=== PATIENT | male | born 1955 | race Asian ===

== ENCOUNTER 2022-01-03 12:22 | Day surgery (SDC) | payer MEDICARE, OTHER ==
[~2022-01-03] VITALS: Ht 170.2 cm; Wt 132.0 kg
[~2022-01-03 12:22] MED LIST: ASPI-1450 PO; ATEN-73 PO; BACI28OI29 TP; LIDOCAINE/PF 1% 5 ML VIAL IM ONE; METF-1211 PO; OMEP20 PO; PROPOFOL 1% 20 ML VIAL IVP ONE; SODIUM CHLORIDE 0.9% 1,000 ML IV ONE; SODIUM CHLORIDE 0.9% 1,000 ML ONE
[2022-01-03 12:43] LABS: COVID AG,FIA SOURCE NASAL SWAB
[2022-01-03] MEDS ORDERED: ISOS30TA92 PO (12:56)
[2022-01-03] MEDS ORDERED: SACU1TAB PO (12:56)
[2022-01-03] MEDS ORDERED: ROSU10TA72 PO (12:56)
[2022-01-03 15:56] LABS: GLUCOMETER DEV NAME(LOC) SDS.; GLUCOSE,POINT OF CARE 98 MG/DL (70-110)
== END 2022-01-03 15:50 | disposition home or self-care (01) ==
LOC: SURGERY 12:22
PROVIDERS: ATTEND Internal Medicine Gastroenterology
DX: K94.23 Gastrostomy malfunction (principal); Z79.82 Long term (current) use of aspirin; Z79.899 Other long term (current) drug therapy; I10 Essential (primary) hypertension; E78.5 Hyperlipidemia, unspecified; E11.9 Type 2 diabetes mellitus without complications; E78.00 Pure hypercholesterolemia, unspecified; Z98.890 Other specified postprocedural states
CPT/HCPCS: 43246; 82962; 87426; C9803; J2001; J2704; J7030

== ENCOUNTER 2023-05-19 08:26 | Day surgery (SDC) | payer MEDICARE, OTHER ==
[~2023-05-19] VITALS: Ht 170.2 cm; Wt 62.7 kg
[~2023-05-19 08:26] MED LIST changes: -ASPI-1450 PO; -ATEN-73 PO; -BACI28OI29 TP; +ISOS30TA92 PO; -LIDOCAINE/PF 1% 5 ML VIAL IM ONE; -METF-1211 PO; -OMEP20 PO; -PROPOFOL 1% 20 ML VIAL IVP ONE; +ROSU10TA72 PO; +SACU1TAB PO; -SODIUM CHLORIDE 0.9% 1,000 ML IV ONE
[2023-05-19] MEDS ORDERED: PROPOFOL 1% 20 ML VIAL IVP ONE (08:27)
[2023-05-19] MEDS ORDERED: LIDOCAINE/PF 2% 5 ML VIAL IM ONE (08:27)
[2023-05-19] MEDS ORDERED: SODIUM CHLORIDE 0.9% 1,000 ML IV ONE (09:00)
[2023-05-19] MEDS ORDERED: METF-1211 PO (14:25)
[2023-05-19] MEDS ORDERED: SODI51CR PO (14:25)
[2023-05-20] MEDS ORDERED: HYDROGEN PEROXIDE 473 ML SOLUTION TP SCH (09:00)
[2023-05-20] MEDS ORDERED: POVIDONE-IODINE 10% 120 ML SOLUTION TP SCH (09:00)
== END 2023-05-19 11:25 | disposition still patient (30) ==
LOC: SURGERY 08:26
PROVIDERS: ATTEND Internal Medicine Gastroenterology
DX: K52.9 Noninfective gastroenteritis and colitis, unspecified (principal); K94.23 Gastrostomy malfunction; I10 Essential (primary) hypertension; E78.5 Hyperlipidemia, unspecified; E11.9 Type 2 diabetes mellitus without complications; Z79.82 Long term (current) use of aspirin; Z79.899 Other long term (current) drug therapy; Z98.890 Other specified postprocedural states
CPT/HCPCS: 43246; 88305; 88312; 88313; 45380; C1769; J2704; J3490; J7030; Z7610

== ENCOUNTER 2023-05-19 11:31 | Inpatient (IN) | payer MEDICARE, OTHER ==
[~2023-05-19] VITALS: Ht 167.6 cm; Wt 54.5 kg
[~2023-05-19 11:31] MED LIST changes: -SODIUM CHLORIDE 0.9% 1,000 ML ONE
[2023-05-19 12:02] LABS: BASOPHILS % (AUTO) 0.7 % (0.0-2.0); EOSINOPHILS % (AUTO) 2.6 % (1.0-6.0); HEMATOCRIT 36.8 % (41-53); HEMOGLOBIN 12.5 g/dL (13.5-17.5); LYMPHOCYTES # (AUTO) 0.5 K/uL (1.0-4.8); LYMPHOCYTES % (AUTO) 14.1 % (22.0-44.0); MEAN CORPUSCULAR HEMOGLOBIN 31.1 pg (26.0-34.0); MEAN CORPUSCULAR HGB CONC 33.8 G/dL (31.0-37.0); MEAN CORPUSCULAR VOLUME 92 fL (80-100); MONOCYTES # (AUTO) 0.3 K/uL (0.1-1.0); NEUTROPHILS # (AUTO) 2.8 K/uL (1.8-7.7); NEUTROPHILS % (AUTO) 74.6 % (40.0-70.0); PLATELET COUNT (AUTO) 247 K/uL (150-450); RED BLOOD CELL COUNT(AUTO) 4.01 MIL/uL (4.50-5.90); RED CELL DISTRIBUTION WIDTH 13.8 % (11.5-14.5); WHITE BLOOD COUNT (AUTO) 3.7 K/uL (4.5-11.0)
[2023-05-19 12:10] LABS: ANION GAP 4 mmol/L (8-16); CALCIUM, TOTAL 9.7 mg/dL (8.8-10.5); CARBON DIOXIDE 31 mmol/L (22-29); CHLORIDE 103 mmol/L (98-107); CREATININE 1.11 mg/dL (0.60-1.30); GLOMERULAR FILTR. RATE CALC > 60 mL/min (>60); GLUCOSE,RANDOM 84 mg/dL (70-110); POTASSIUM 4.4 mmol/L (3.5-5.1); SODIUM SERUM 138 mmol/L (136-145); UREA NITROGEN, BLOOD 18 mg/dL (7-18)
[2023-05-19 12:12] LABS: PROTHROMBIN TIME 10.4 SEC (9.4-11.6)
[2023-05-19 12:18] LABS: ALANINE AMINOTRANSFERASE 28 U/L (12-78); ALBUMIN 3.3 g/dL (3.4-5.0); ALKALINE PHOSPHATASE 107 U/L (46-116); ASPARTATE AMINOTRANSFERASE 24 U/L (15-37); BILIRUBIN,TOTAL 0.3 mg/dL (0.1-1.0); CREATINE KINASE, TOTAL ONLY 68 U/L (39-308); TOTAL PROTEIN, SERUM 8.7 g/dL (6.4-8.2); TROPONIN I-HIGH SENSITIVITY 13 ng/L (<76)
[2023-05-19 12:22] LABS: COVID AG,FIA SOURCE NASAL SWAB
[2023-05-19 12:25] LABS: B-TYPE NATRIURETIC PEPTIDE 173 pg/mL (0-100)
[2023-05-19 12:30] LABS: RBC MORPHOLOGY COMMENT NORMAL RBC MORPH
[2023-05-19 12:54] LABS: SARS-COV2 (COVID) ANTIGEN,FIA Negative (Negative)
[2023-05-19 13:38] LABS: APPEARANCE,URINE CLEAR (CLEAR); BILIRUBIN,URINE NEGATIVE (NEGATIVE); COLOR,URINE LIGHT YELLOW (YELLOW); GLUCOSE, URINE (UA) NEGATIVE (NEGATIVE); LEUKOCYTE ESTERASE ,URINE NEGATIVE (NEGATIVE); NITRATE,URINE NEGATIVE (NEGATIVE); OCCULT BLOOD,URINE NEGATIVE (NEGATIVE); PH,URINE 6.5 (5.0-8.0); PROTEIN,URINE TRACE mg/dL (NEGATIVE); SPECIFIC GRAVITIY, URINE 1.011 (1.003-1.030); UROBILINOGEN,URINE <=1.0 mg/dL (<=1.0)
[2023-05-19 14:06] VITALS: BP 141/78; PULSE 67; RESP 16; TEMP 97.9
[2023-05-19] MEDS ORDERED: SODI51CR PO (14:25)
[2023-05-19] MEDS ORDERED: METF-1211 PO (14:25)
[2023-05-19] MEDS ORDERED: MORPHINE SULFATE 2 MG/ML SYRINGE IVP PRN (14:30)
[2023-05-19] MEDS ORDERED: ACETAMINOPHEN 325 MG TABLET PO PRN (14:30)
[2023-05-19] MEDS ORDERED: ONDANSETRON HCL 4 MG/2 ML VIAL IVP PRN (14:30)
[2023-05-19] MEDS ORDERED: MAGNESIUM HYDROXIDE SUSPENSION 30 ML UDCUP PO PRN (14:30)
[2023-05-19] MEDS ORDERED: ZOLPIDEM TARTRATE 5 MG TABLET PO PRN (14:30)
[2023-05-19] MEDS ORDERED: BISACODYL 10 MG RECTAL RECTAL SUPPOSITORY PR PRN (14:30)
[2023-05-19 15:31] VITALS: BP 125/82; PULSE 65; RESP 18; TEMP 98.4
[2023-05-19] MEDS: HEPARIN SODIUM,PORCINE 5,000 UNITS/ML VIAL SQ SCH (17:27)
[2023-05-19 17:55] LABS: PHOSPHORUS 3.1 mg/dL (2.5-4.9)
[2023-05-19 19:41] VITALS: BP 137/83; PULSE 64; RESP 18; TEMP 97.8
[2023-05-19 20:56] LABS: TROPONIN I-HIGH SENSITIVITY 27 ng/L (<76)
[2023-05-19] MEDS: DOCUSATE SODIUM 100 MG CAPSULE PO SCH ×2 (21:00→21:18)
[2023-05-19] MEDS: SACUBITRIL/VALSARTAN 24-26 MG TABLET PO SCH (21:18)
[2023-05-19 23:45] VITALS: BP 118/74; PULSE 70; RESP 18; TEMP 97.8
[2023-05-20] MEDS: HEPARIN SODIUM,PORCINE 5,000 UNITS/ML VIAL SQ SCH ×3 (00:57→16:46)
[2023-05-20 03:56] VITALS: BP 106/72; PULSE 60; RESP 18; TEMP 97.7
[2023-05-20 06:28] LABS: BASOPHILS % (AUTO) 1.2 % (0.0-2.0); HEMATOCRIT 37.2 % (41-53); HEMOGLOBIN 12.6 g/dL (13.5-17.5); LYMPHOCYTES # (AUTO) 0.5 K/uL (1.0-4.8); LYMPHOCYTES % (AUTO) 18.6 % (22.0-44.0); MEAN CORPUSCULAR HGB CONC 33.8 G/dL (31.0-37.0); MEAN CORPUSCULAR VOLUME 92 fL (80-100); MONOCYTES # (AUTO) 0.3 K/uL (0.1-1.0); NEUTROPHILS # (AUTO) 1.6 K/uL (1.8-7.7); NEUTROPHILS % (AUTO) 62.2 % (40.0-70.0); PLATELET COUNT (AUTO) 249 K/uL (150-450); RED BLOOD CELL COUNT(AUTO) 4.05 MIL/uL (4.50-5.90); RED CELL DISTRIBUTION WIDTH 13.6 % (11.5-14.5); WHITE BLOOD COUNT (AUTO) 2.6 K/uL (4.5-11.0)
[2023-05-20 06:55] LABS: ANION GAP 5 mmol/L (8-16); CALCIUM, TOTAL 9.7 mg/dL (8.8-10.5); CARBON DIOXIDE 30 mmol/L (22-29); CHLORIDE 102 mmol/L (98-107); CREATININE 1.17 mg/dL (0.60-1.30); GLOMERULAR FILTR. RATE CALC > 60 mL/min (>60); GLUCOSE,RANDOM 109 mg/dL (70-110); POTASSIUM 4.8 mmol/L (3.5-5.1); SODIUM SERUM 137 mmol/L (136-145); UREA NITROGEN, BLOOD 18 mg/dL (7-18)
[2023-05-20 07:01] LABS: TROPONIN I-HIGH SENSITIVITY 17 ng/L (<76)
[2023-05-20 07:58] VITALS: BP 117/49; PULSE 64; RESP 18; TEMP 97.9
[2023-05-20] MEDS: DOCUSATE SODIUM 100 MG CAPSULE PO SCH (08:05)
[2023-05-20] MEDS: HYDROCODONE/ACETAMINOPHEN 5-325 MG TABLET PO PRN ×3 (08:05→16:46)
[2023-05-20] MEDS ORDERED: ISOSORBIDE MONONITRATE 30 MG ER TABLET PO SCH (09:00)
[2023-05-20] MEDS ORDERED: PANTOPRAZOLE SODIUM 40 MG DR TABLET PO SCH (09:00)
[2023-05-20] MEDS ORDERED: ROSUVASTATIN CALCIUM 10 MG TABLET PO SCH (09:00)
[2023-05-20 11:34] VITALS: BP 127/80; PULSE 84; RESP 16; TEMP 98.4
[2023-05-20] MEDS: SACUBITRIL/VALSARTAN 24-26 MG TABLET PO SCH (12:15)
[2023-05-20 15:11] VITALS: BP 121/58; PULSE 64; RESP 16; TEMP 97.5
== END 2023-05-20 18:00 | disposition home or self-care (01) | DRG 308 ==
LOC: EMS 11:31 → 5S 13:08
PROVIDERS: ADMIT Internal Medicine; ATTEND Internal Medicine
DX: I49.8 Other specified cardiac arrhythmias (principal); E43 Unspecified severe protein-calorie malnutrition; Z68.1 Body mass index [BMI] 19.9 or less, adult; I50.32 Chronic diastolic (congestive) heart failure; E78.5 Hyperlipidemia, unspecified; R13.10 Dysphagia, unspecified; E03.8 Other specified hypothyroidism; E11.9 Type 2 diabetes mellitus without complications; Z20.822 Contact with and (suspected) exposure to COVID-19; I11.0 Hypertensive heart disease with heart failure; I49.3 Ventricular premature depolarization; Z93.1 Gastrostomy status; Z79.899 Other long term (current) drug therapy; Z85.89 Personal history of malignant neoplasm of other organs and systems
CPT/HCPCS: 71045; 80048; 80053; 81003; 82550; 83735; 83880; 84100; 84439; 84443; 84484; 85025; 85610; 93005; 93306; 99285; J1644; Q9967; 36415-L1; 36415-TC; C9803

== ENCOUNTER 2024-09-20 08:01 | Day surgery (SDC) | payer MEDICARE, OTHER ==
[~2024-09-20] VITALS: Ht 170.2 cm; Wt 64.5 kg
[~2024-09-20 08:01] MED LIST changes: +DONE-52 PO; -ISOS30TA92 PO; +LIDOCAINE/PF 2% 5 ML VIAL ONE; +PROPOFOL 1% 20 ML VIAL IVP ONE; -ROSU10TA72 PO; -SACU1TAB PO
[2024-09-20] MEDS: SODIUM CHLORIDE 0.9% 1,000 ML IV ONE (09:53)
== END 2024-09-20 11:45 | disposition home or self-care (01) ==
LOC: SURGERY 08:01
PROVIDERS: ATTEND Internal Medicine Gastroenterology
DX: K94.23 Gastrostomy malfunction (principal); E11.9 Type 2 diabetes mellitus without complications; F03.90 Unspecified dementia, unspecified severity, without behavioral disturbance, psychotic disturbance, mood disturbance, and anxiety; Z88.0 Allergy status to penicillin; Z95.0 Presence of cardiac pacemaker; Z98.890 Other specified postprocedural states; I10 Essential (primary) hypertension
CPT/HCPCS: 43246; 93005; J2704; J3490

== ENCOUNTER 2025-01-10 11:06 | Inpatient (IN) | payer MEDICARE, OTHER ==
[~2025-01-10] VITALS: Ht 170.2 cm; Wt 60.9 kg
[~2025-01-10 11:06] MED LIST changes: -LIDOCAINE/PF 2% 5 ML VIAL ONE; -PROPOFOL 1% 20 ML VIAL IVP ONE
[2025-01-10] MEDS ORDERED: SODI51CR PO (11:58)
[2025-01-10] MEDS ORDERED: DONE-51 PO (11:58)
[2025-01-10] MEDS ORDERED: LATA2.5D7 OU (11:58)
[2025-01-10] MEDS ORDERED: CHOL200059 PO (11:58)
[2025-01-10] MEDS ORDERED: DIATRIZOATE MEGLU/SOD 660/100 MG/ML 120 ML BOTTLE ONE (12:07)
[2025-01-10] MEDS: SODIUM CHLORIDE 0.9% 1,000 ML IV ONE (12:29)
[2025-01-10 12:32] LABS: PLATELET COUNT (AUTO) 181 K/uL (150-450); RED BLOOD CELL COUNT(AUTO) 4.02 MIL/uL (4.50-5.90); RED CELL DISTRIBUTION WIDTH 13.6 % (11.5-14.5); WHITE BLOOD COUNT (AUTO) 3.9 K/uL (4.5-11.0)
[2025-01-10 12:37] LABS: CALCIUM, TOTAL 9.7 mg/dL (8.8-10.5); CREATININE 1.33 mg/dL (0.60-1.30); GLOMERULAR FILTR. RATE CALC 53.0 mL/min (>60); GLUCOSE,RANDOM 112.0 mg/dL (70-110); SODIUM SERUM 143.0 mmol/L (136-145); UREA NITROGEN, BLOOD 38.0 mg/dL (7-18)
[2025-01-10] MEDS ORDERED: ZOLPIDEM TARTRATE 5 MG TABLET PO PRN (14:45)
[2025-01-10] MEDS ORDERED: ACETAMINOPHEN 325 MG TABLET PO PRN (14:45)
[2025-01-10] MEDS ORDERED: ALBUTEROL SULFATE 2.5 MG/0.5 ML NEB SOLUTION NEB PRN (14:45)
[2025-01-10] MEDS ORDERED: IPRATROPIUM BROMIDE 0.5 MG/2.5 ML NEB SOLUTION NEB PRN (14:45)
[2025-01-10] MEDS ORDERED: BISACODYL 10 MG RECTAL RECTAL SUPPOSITORY PR PRN (14:45)
[2025-01-10] MEDS ORDERED: ONDANSETRON HCL 4 MG/2 ML VIAL IVP PRN (14:45)
[2025-01-10] MEDS ORDERED: MAGNESIUM HYDROXIDE SUSPENSION 30 ML UDCUP PO PRN (14:45)
[2025-01-10] MEDS ORDERED: HYDROCODONE/ACETAMINOPHEN 5-325 MG TABLET PO PRN (14:45)
[2025-01-10] MEDS: MORPHINE SULFATE 2 MG/ML SYRINGE IVP PRN (15:49)
[2025-01-10] MEDS: DEXTROSE 5%-0.45% SODIUM CHL 1,000 ML IV ONE (15:50)
[2025-01-10 16:23] VITALS: BP 155/82; PULSE 60; RESP 17; TEMP 97.5; O2SAT 98
[2025-01-10 19:42] VITALS: BP 148/73; PULSE 60; RESP 19; TEMP 98.1; O2SAT 99
[2025-01-10] MEDS: DOCUSATE SODIUM 100 MG CAPSULE PO SCH (20:01)
[2025-01-11 04:50] VITALS: BP 131/72; PULSE 59; RESP 18; TEMP 98.1; O2SAT 98
[2025-01-11] MEDS ORDERED: SODIUM CHLORIDE 0.9% 1,000 ML ONE (06:33)
[2025-01-11] MEDS: CHLORHEXIDINE GLUCONATE 2% TOWELETTE [2'S/6'S] TP ONE (07:16)
[2025-01-11] MEDS: ETHYL ALCOHOL 62% ANTISEPTIC NASAL SANITIZER 0.6 ML AMPUL NASAL ONE (07:16)
[2025-01-11] MEDS: SODIUM CHLORIDE 0.9% 1,000 ML IV ONE (07:16)
[2025-01-11] MEDS: PANTOPRAZOLE SODIUM 40 MG/VIAL IVP SCH ×2 (08:43→20:32)
[2025-01-11] MEDS: DONEPEZIL HCL 10 MG TABLET PO SCH (08:44)
[2025-01-11] MEDS: CHOLECALCIFEROL (VIT D3) 1,000 UNITS [25 MCG] TABLET PO SCH (08:44)
[2025-01-11 09:14] VITALS: BP 124/76; PULSE 60; RESP 18; TEMP 97.7; O2SAT 100
[2025-01-11 15:23] VITALS: BP 139/87; PULSE 60; RESP 18; TEMP 97.7; O2SAT 100
[2025-01-11 20:09] VITALS: BP 155/82; PULSE 60; RESP 20; TEMP 97.7; O2SAT 99
[2025-01-11] MEDS: LATANOPROST 0.005% 2.5 ML OPHTHALMIC SOLUTION OU SCH (21:07)
[2025-01-12 04:10] VITALS: BP 141/87; PULSE 65; RESP 18; TEMP 97.5; O2SAT 98
[2025-01-12 07:20] LABS: PLATELET COUNT (AUTO) 153 K/uL (150-450); RED BLOOD CELL COUNT(AUTO) 3.83 MIL/uL (4.50-5.90); RED CELL DISTRIBUTION WIDTH 13.5 % (11.5-14.5); WHITE BLOOD COUNT (AUTO) 3.3 K/uL (4.5-11.0)
[2025-01-12 07:26] LABS: ASPARTATE AMINOTRANSFERASE 23 U/L (15-37); CALCIUM, TOTAL 9.2 mg/dL (8.8-10.5); CREATININE 1.13 mg/dL (0.60-1.30); GLOMERULAR FILTR. RATE CALC > 60 mL/min (>60); GLUCOSE,RANDOM 92 mg/dL (70-110); SODIUM SERUM 140 mmol/L (136-145); TOTAL PROTEIN, SERUM 7.2 g/dL (6.4-8.2); UREA NITROGEN, BLOOD 20 mg/dL (7-18)
[2025-01-12 08:46] VITALS: BP 134/79; PULSE 62; RESP 19; TEMP 97.6; O2SAT 100
[2025-01-12] MEDS ORDERED: LANS15TA13 PO (16:06)
[2025-01-12 17:02] VITALS: BP 145/81; PULSE 60; RESP 18; TEMP 97.7; O2SAT 100
== END 2025-01-12 17:27 | disposition home or self-care (01) | DRG 393 ==
LOC: EMS 11:12 → EDH 13:30 → 6S 15:05 → 4E 23:33
PROVIDERS: ADMIT Hospitalist; ATTEND Hospitalist
PROC: 0DJ08ZZ Inspection of Upper Intestinal Tract, Via Natural or Artificial Opening Endoscopic (ICD-10-PCS; principal; 2025-01-11 08:00)
DX: K94.23 Gastrostomy malfunction (principal); K20.91 Esophagitis, unspecified with bleeding; K25.4 Chronic or unspecified gastric ulcer with hemorrhage; K29.81 Duodenitis with bleeding; I10 Essential (primary) hypertension; N28.9 Disorder of kidney and ureter, unspecified; F03.A0 Unspecified dementia, mild, without behavioral disturbance, psychotic disturbance, mood disturbance, and anxiety; K29.80 Duodenitis without bleeding; D64.9 Anemia, unspecified; E11.9 Type 2 diabetes mellitus without complications; Y83.3 Surgical operation with formation of external stoma as the cause of abnormal reaction of the patient, or of later complication, without mention of misadventure at the time of the procedure; Z88.0 Allergy status to penicillin; Y92.89 Other specified places as the place of occurrence of the external cause; Z85.89 Personal history of malignant neoplasm of other organs and systems
CPT/HCPCS: 74018; 80048; 80053; 85025; 87081; 99285; G0378; J2270; J2470; J7030; 36415-L1; 36415-TC

== ENCOUNTER 2025-04-04 06:13 | Day surgery (SDC) | payer MEDICARE, OTHER ==
[~2025-04-04 06:13] MED LIST changes: +CHOL200059 PO; +DONE-51 PO; -DONE-52 PO; +ESOM20SU2 PO; +LATA2.5D7 OU; +MEMA5TAB16 PO; +SODI51CR PO; +SODIUM CHLORIDE 0.9% 1,000 ML ONE
[2025-04-04] MEDS: SODIUM CHLORIDE 0.9% 1,000 ML IV ONE (07:15)
[2025-04-04] MEDS ORDERED: LIDOCAINE/PF 2% 5 ML VIAL ONE (12:00)
[2025-04-04] MEDS ORDERED: PROPOFOL 1% ISO-OSM 1000 MG/100 ML BOTTLE ONE (12:00)
== END 2025-04-04 10:50 | disposition home or self-care (01) ==
LOC: SDS 06:13
PROVIDERS: ATTEND Internal Medicine Gastroenterology
DX: K94.23 Gastrostomy malfunction (principal); I10 Essential (primary) hypertension; Z88.0 Allergy status to penicillin; E11.9 Type 2 diabetes mellitus without complications; E78.00 Pure hypercholesterolemia, unspecified; I49.3 Ventricular premature depolarization; Z86.73 Personal history of transient ischemic attack (TIA), and cerebral infarction without residual deficits; Z79.899 Other long term (current) drug therapy; Z98.890 Other specified postprocedural states
CPT/HCPCS: 43246; 93005; J3490; J2704; J7030